=== PATIENT | female | born 1965 | race Caucasian/White ===

== ENCOUNTER 2016-08-11 18:23 | Emergency (ER) | payer OTHER ==
[~2016-08-11] VITALS: Ht 154.9 cm; Wt 75.0 kg
[2016-08-11 18:56] VITALS: BP 113/81
[2016-08-11] MEDS ORDERED: METHOCARBAMOL 500 MG TABLET PO ONE (19:15)
[2016-08-11] MEDS ORDERED: KETOROLAC TROMETHAMINE 60 MG/2 ML VIAL IM ONE (19:15)
== END 2016-08-11 20:39 | disposition home or self-care (01) ==
LOC: EMS 18:26
DX: S16.1XXA Strain of muscle, fascia and tendon at neck level, initial encounter (principal); S40.012A Contusion of left shoulder, initial encounter; V49.9XXA Car occupant (driver) (passenger) injured in unspecified traffic accident, initial encounter; Y93.89 Activity, other specified; Y92.413 State road as the place of occurrence of the external cause; Y99.9 Unspecified external cause status
CPT/HCPCS: 73060; 96372; 99284; J1885

== ENCOUNTER 2017-03-24 09:17 | Emergency (ER) | payer OTHER ==
[~2017-03-24] VITALS: Ht 167.6 cm; Wt 70.0 kg
[2017-03-24] MEDS ORDERED: KETOROLAC TROMETHAMINE 60 MG/2 ML VIAL IM ONE (10:00)
[2017-03-24 10:35] VITALS: BP 113/82
== END 2017-03-24 10:40 | disposition home or self-care (01) ==
LOC: EMS 09:19
DX: S39.012A Strain of muscle, fascia and tendon of lower back, initial encounter (principal); S40.022A Contusion of left upper arm, initial encounter; X58.XXXA Exposure to other specified factors, initial encounter; Y92.89 Other specified places as the place of occurrence of the external cause; Y99.8 Other external cause status
CPT/HCPCS: 96372; 99283; J1885

== ENCOUNTER 2023-10-24 06:13 | Emergency (ER) | payer OTHER ==
[~2023-10-24] VITALS: Ht 167.6 cm; Wt 72.7 kg
[2023-10-24] MEDS: IBUPROFEN 600 MG TABLET PO ONE (07:45)
[2023-10-24 12:02] VITALS: BP 108/66; PULSE 78; RESP 16; TEMP 98
[2023-10-24] MEDS ORDERED: TRAM50TA5 PO (12:04)
== END 2023-10-24 12:17 | disposition home or self-care (01) ==
LOC: EMS 06:15
DX: S42.291A Other displaced fracture of upper end of right humerus, initial encounter for closed fracture (principal); W01.0XXA Fall on same level from slipping, tripping and stumbling without subsequent striking against object, initial encounter; Y93.89 Activity, other specified; Y92.89 Other specified places as the place of occurrence of the external cause; Y99.8 Other external cause status
CPT/HCPCS: 71046; 99284